=== PATIENT | female | born 1985 | race Caucasian/White ===

== ENCOUNTER → 2018-07-22 | Outpatient (CLI) | payer OTHER | LOC: LABWHC1 09:11 | PROVIDERS: ATTEND Obstetrics & Gynecology | DX: Z34.82 Encounter for supervision of other normal pregnancy, second trimester (principal); Z3A.00 Weeks of gestation of pregnancy not specified | CPT/HCPCS: 36415; 82950 ==

== ENCOUNTER 2018-10-19 17:54 | Inpatient (IN) | payer OTHER ==
[2018-10-19] MEDS ORDERED: LIDOCAINE 0.5% (PF) 5 MG/ML (50 ML SDV) SQ PRN (18:04)
[2018-10-19] MEDS ORDERED: METHYLERGONOVINE 0.2 MG/ML 1 ML AMP IM PRN (18:04)
[2018-10-19] MEDS ORDERED: OXYTOCIN 10 UNIT/ML 1 ML VIAL IM PRN (18:04)
[2018-10-19] MEDS ORDERED: TERBUTALINE 1 MG/ML VIAL SQ PRN (18:04)
[2018-10-19] MEDS ORDERED: CARBOPROST TROMETHAMINE 250 MCG/ML 1 ML AMP IM PRN (18:04)
[2018-10-19] MEDS ORDERED: LACTATED RINGERS 1,000 ML IV SCH (18:15)
[2018-10-19 18:27] LABS: Basophils # (A) 0.1 k/uL (0-0.2); Basophils % (A) 0 %; Eosinophils # (A) 0.3 k/uL (0-0.7); Eosinophils % (A) 2 %; HCT 37.8 % (34.0-46.0); HGB 12.3 gm/dL (11.4-16.0); Lymphocytes # (A) 1.9 k/uL (1.0-4.8); Lymphocytes % (A) 16 %; MCH 29.8 pg (25.0-35.0); MCHC 32.6 g/dL (31.0-37.0); MCV 91.4 fL (80.0-100.0); Mean Platelet Volume 8.8; Monocytes # (A) 0.4 k/uL (0-1.0); Monocytes % (A) 4 %; Neutrophils # (A) 8.8 k/uL (1.3-7.7); Neutrophils % (A) 76 %; Platelet Count 229 k/uL (150-450); RBC 4.14 m/uL (3.80-5.40); WBC 11.7 k/uL (3.8-10.6)
[2018-10-19] MEDS ORDERED: LANOLIN CREAM 5 GM TUBE TOPICAL PRN (18:32)
[2018-10-19] MEDS ORDERED: SIMETHICONE 80 MG CHEWABLE PO PRN (18:32)
[2018-10-19] MEDS ORDERED: BENZOCAINE/MENTHOL SPRAY 1 GM/SPRAY AEROSOL TOPICAL PRN (18:32)
[2018-10-19] MEDS ORDERED: WITCH HAZEL 1 EACH MED..PAD TOPICAL PRN (18:32)
[2018-10-19] MEDS ORDERED: diphenhydrAMINE 50 MG/ML 1 ML VIAL IVP PRN ×2 (18:32)
[2018-10-19] MEDS ORDERED: HYDROCORTISONE 2.5% RECTAL CREAM 30 GM TUBE RECTAL PRN (18:32)
[2018-10-19] MEDS ORDERED: diphenhydrAMINE 25 MG CAP PO PRN (18:32)
[2018-10-19] MEDS ORDERED: diphenhydrAMINE 50 MG CAP PO PRN (18:32)
[2018-10-19] MEDS ORDERED: ZOLPIDEM 5 MG TAB PO PRN (18:32)
--- NOTE | 2018-10-19 18:35 | P.HPOB ---
History of Present Illness H&P Date: 10/19/18 Chief Complaint: Intrauterine at 39 weeks 6 days gestation Care is a 33-year-old at 39 and 6 who arrives in active labor dilated to complete. Spontaneous rupture membranes occurred while in triage. Her Precis course she denies any significant competitions and was actually scheduled for induction in the morning. Pertinent labs include O+ blood type, Rh antibody was negative, rubella was immune, hepatitis B surface antigen/RPR/GBS were all negative. She does relate that she is aure relatively regularly since yesterday and delayed coming in until the pressure got too much. On physical exam vital signs are stable and afebrile. Heart was regular, lungs were clear, extremities were without pain. Abdomen soft gravid uterus was noted heart tones were category 1 tracing. Assessment intrauterine term. Plan expect spontaneous vaginal delivery. Past Medical History Past Medical History: Asthma History of Any Multi-Drug Resistant Organisms: None Reported Past Surgical History: No Surgical Hx Reported Past Anesthesia/Blood Transfusion Reactions: No Reported Reaction Past Psychological History: No Psychological Hx Reported Smoking Status: Former smoker Past Alcohol Use History: None Reported Past Drug Use History: None Reported - Past Family History Mother Family Medical History: No Reported History Medications and Allergies Home Medications Medication Instructions Recorded Confirmed Type Albuterol Inhaler [Ventolin Hfa 1 - 2 puff INHALATION Q6HR PRN 05/13/17 05/13/17 History Inhaler] Albuterol Nebulized [Ventolin 2.5 mg INHALATION Q4H 05/13/17 05/14/17 History Nebulized] Jeu-Gckx-Zjupo Acid 1 cap PO DAILY 05/13/17 05/14/17 History [-U Capsule (formulary)] Allergies Allergy/AdvReac Type Severity Reaction Status Date / Time No Known Allergies Allergy Verified 07/22/18 15:26 Exam Osteopathic Statement: *. No significant issues noted on an osteopathic structural exam other than those noted in the History and Physical/Consult. Intake and Output 10/19/18 10/19/18 10/19/18 06:59 14:59 22:59 Other: Weight 87.997 kg - OBG Physical Exam Breast: both: normal (no masses) Abdomen: bowel sounds normal, no diffuse tenderness, no bruit present, no guarding noted, no hepatomegaly, no splenomegaly, no mass Vulva: both: normal Vagina: normal moisture, no discharge Cervix: no lesion, no discharge Uterus: normal size, normal contour Adnexa: both: normal Anus/Rectum: normal perianal skin, no rectal mass, no hemorrhoids, heme negative Results Result Diagrams: 10/19/18 18:16 Abnormal Lab Results - Last 24 Hours (Table) 10/19/18 Range/Units 18:16 WBC 11.7 H (3.8-10.6) k/uL Neutrophils # 8.8 H (1.3-7.7) k/uL
--- NOTE | 2018-10-19 18:36 | P.PROBDLV ---
Vaginal Delivery Note - . Vaginal Delivery Note: Patient progressed complete and pushed with spontaneous vaginal delivery of a viable male over an intact perineum. Falling deliver the head, nuchal cord 1 was noted the baby was delivered through the nuchal cord with gentle downward and upward traction. Once baby was fully delivered mouth nares were bulb suctioned and baby was placed on mother's abdomen where the umbilical cord was clamped and cut in usual fashion. Placenta was then delivered intact and Pitocin was added to the IV. Blood was collected for O+ blood type. scores were 9 and 9 at one and 5 minutes respectively and the weight was 6 lbs. 11 oz. Both mother and baby are stable following delivery.
[2018-10-19] MEDS ORDERED: OXYTOCIN 20 UNITS/1000 ML NS 1,000 ML IV SCH (18:45)
[2018-10-19 18:51] VITALS: BMI 34.3
[2018-10-19] MEDS: IBUPROFEN 600 MG TAB PO PRN (19:15)
[2018-10-19] MEDS ORDERED: SENNOSIDES-DOCUSATE SODIUM 1 EACH TAB PO SCH (20:00)
[2018-10-19] MEDS: ACETAMINOPHEN TAB 325 MG TAB PO PRN (20:36)
[2018-10-19 23:46] VITALS: RESP 16
[2018-10-20] MEDS: ACETAMINOPHEN TAB 325 MG TAB PO PRN (00:27)
[2018-10-20] MEDS: IBUPROFEN 600 MG TAB PO PRN ×2 (08:03→15:47)
--- NOTE | 2018-10-20 08:24 | P.DS ---
Providers Date of admission: 10/19/18 18:05 Expected date of discharge: 10/20/18 Attending physician: Samira Berrios Primary care physician: Samira Berrios [place] [facility] Course: This is a 33-year-old female 5 para 3 at 39-6/7 weeks who presented in active labor and delivered vaginally a viable male infant on 10/19/2018 with scores of 9 at 1 minute and 9 at 5 minutes and infant weight of 6 pounds 11.9 ounces. Her course has been uncomplicated. She is breast- feeding. Lochia is decreasing. Pain is well-controlled with ibuprofen. Vital signs are stable. Abdomen is soft with fundus firm and nontender. Extremities show negative Homans. Impression is status post vaginal delivery day #1. Plan is to discharge home today. Routine instructions are given. She is advised follow-up in the office in 6 weeks for a check. She is advised to call the office if she has any further questions or concerns prior to her appointment time. She will be given a prescription for ibuprofen and a breast pump. Procedures: Spontaneous vaginal delivery of a viable male on 10/19/2018. Patient Condition at Discharge: Stable Plan - Discharge Summary New Discharge Prescriptions: New Ibuprofen [Motrin] 600 mg PO Q6HR PRN #60 tab PRN Reason: Mild Pain Or Fever >= 100.5 Continue Efj-Moll-Mkkkp Acid [-U Capsule (formulary)] 1 cap PO DAILY No Action Albuterol Nebulized [Ventolin Nebulized] 2.5 mg INHALATION Q4H Albuterol Inhaler [Ventolin Hfa Inhaler] 1 - 2 puff INHALATION Q6HR PRN PRN Reason: Wheezing Discharge Medication List Albuterol Inhaler [Ventolin Hfa Inhaler] 1 - 2 puff INHALATION Q6HR PRN 05/13/17 [History] Albuterol Nebulized [Ventolin Nebulized] 2.5 mg INHALATION Q4H 05/13/17 [History] Ekz-Ppdu-Yhzcb Acid [-U Capsule (formulary)] 1 cap PO DAILY 05/13/17 [History] Ibuprofen [Motrin] 600 mg PO Q6HR PRN #60 tab 10/20/18 [Rx] Follow up Appointment(s)/Referral(s): Berrios,Samira, DO [Primary Care Provider] - 6 Weeks Activity/Diet/Wound Care/Special Instructions: Instructions 1. Do not begin any exercise program for 3 weeks. 2. Do not resume sexual relations for 3 weeks or longer if uncomfortable. 3. You may take tub baths or showers at any time. 4. You may use tampons if desired after 3 weeks. 5. Keep the area of episiotomy (stitches) clean and dry. 6. If you are not nursing, wear a good fitting, supportive bra during the day and limit fluid intake for at least 1 week to prevent breast engorgement. 7. Call the office, [phone], within the next week to make appointment for your 6 week checkup if it has not already been made. 8. Report any of the following occurrences to the doctor promptly: a. Heavy, excessive bleeding b. Chills, fever c. Burning or frequency of urination d. Pain or redness and breasts if nursing e. Increasing pain or swelling in episiotomy (stitches). In addition to the above instructions, the following additional should be followed: 1. No heavy lifting or straining (exercising) until after 6 week checkup. 2. Keep abdominal incision clean and dry: You may wear a dressing if more comfortable. 3. Make office appointment for 10 days after going home or as instructed by her doctor. Discharge Disposition: HOME SELF-CARE
[2018-10-20 15:49] VITALS: BP 124/79; PULSE 77; TEMP 97.5
== END 2018-10-20 18:49 | disposition home or self-care (01) | DRG 807 ==
LOC: FBPOP 17:54 → 4FBP 18:05
PROVIDERS: ADMIT Obstetrics & Gynecology; ATTEND Obstetrics & Gynecology
PROC: 10E0XZZ Delivery of Products of Conception, External Approach (ICD-10-PCS; principal; 2018-10-19)
DX: O69.81X0 Labor and delivery complicated by cord around neck, without compression, not applicable or unspecified (principal); Z37.0 Single live birth; Z3A.39 39 weeks gestation of pregnancy; O99.52 Diseases of the respiratory system complicating childbirth; J45.909 Unspecified asthma, uncomplicated; Z87.891 Personal history of nicotine dependence; Z79.899 Other long term (current) drug therapy
CPT/HCPCS: 85025; 86850; 86900; 86901; 99213

== ENCOUNTER 2021-09-15 06:37 | Emergency (ER) | payer OTHER ==
[2021-09-15 06:47] VITALS: TEMP 98.3
[2021-09-15] MEDS ORDERED: MORPHINE SULFATE 4 MG/ML SYRINGE IVP STA ×3 (06:51→08:04)
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
[2021-09-15] MEDS ORDERED: HYDROcodone/APAP 5-325MG 1 EACH TAB PO STA (08:01)
[2021-09-15 08:45] VITALS: BP 118/60; PULSE 75; RESP 20
== END 2021-09-15 08:45 | disposition home or self-care (01) ==
LOC: EC 06:37
DX: S42.022A Displaced fracture of shaft of left clavicle, initial encounter for closed fracture (principal); J45.909 Unspecified asthma, uncomplicated; V43.52XA Car driver injured in collision with other type car in traffic accident, initial encounter; Y92.410 Unspecified street and highway as the place of occurrence of the external cause
CPT/HCPCS: 70450; 71045; 72125; 96374; 96376; 99284

== ENCOUNTER 2021-09-19 12:01 | Day surgery (SDC) | payer OTHER ==
[2021-09-18 08:52] VITALS: BMI 28.3
[~2021-09-19 12:01] MED LIST: DEXAMETHASONE SOD PHOSPHATE 4 MG/ML 1 ML VIAL IV ONE; LIDOCAINE 1% (10MG/ML) FOR IV START INTRADERMA PRN; ONDANSETRON 4 MG/2 ML VIAL IVP PRN
[2021-09-19] MEDS: LACTATED RINGERS 1,000 ML IV SCH ×2 (12:37→13:25)
[2021-09-19] MEDS ORDERED: SCOPOLAMINE 1.5MG/72HR PATCH TRANSDERM ONE (12:38)
[2021-09-19] MEDS ORDERED: MIDAZOLAM 2 MG/2 ML VIAL IVP ONE (12:56)
[2021-09-19] MEDS ORDERED: fentaNYL (PF) 50 MCG/ML 2 ML AMP IVP ONE (12:56)
[2021-09-19] MEDS ORDERED: ROPIVACAINE 5 MG/ML 30 ML VIAL ONE (13:26)
[2021-09-19] MEDS ORDERED: MIDAZOLAM 2 MG/2 ML VIAL ONE (13:26)
[2021-09-19] MEDS ORDERED: KETOROLAC 15 MG/ML 1 ML VIAL ONE (13:26)
[2021-09-19] MEDS ORDERED: PROPOFOL 10 MG/ML 20 ML VIAL IV ONE (13:26)
[2021-09-19] MEDS ORDERED: fentaNYL (PF) 50 MCG/ML 2 ML AMP ONE (13:26)
[2021-09-19] MEDS ORDERED: ceFAZolin 1,000 MG in SODIUM CHLORIDE 0.9% 1,000 ML IRRIGATION ONE (13:26)
[2021-09-19] MEDS ORDERED: SUCCINYLCHOLINE CHLORIDE 100 MG/5 ML SYR IV ONE (13:26)
[2021-09-19] MEDS ORDERED: PHENYLEPHRINE-0.9% NACL SYG 1,000 MCG/10 ML SYRINGE ONE (13:26)
--- NOTE | 2021-09-19 13:55 | P.ANPRN ---
Procedure Note - Anesthesia - Nerve Block Performed Left Interscalene Single Time Out Performed: Yes ([id number]) Date of Procedure: 09/19/21 Procedure Start Time: 12:56 Procedure Stop Time: 13:01 Location of Patient: PreOp Indication: Acute Post-Operative Pain, Requested by Surgeon Specifically requested for management of pain by DrAnnika: Agustin Davis Sedation Type: Sedate with meaningful contact maintained Preparation: Sterile Prep Position: Supine Catheter: None Needle Types: Pajunk Needle Gauge: 21 Ultrasound used to visualize needle placement: Yes Ultrasound used to observe medication spread: Yes Injectate: 0.5% Ropivacaine (see comment for volume) (30cc) Blood Aspirated: No Pain Paresthesia on Injection Noted: No Resistance on Injection: Normal Image Stored and Saved: Yes Events: Uneventful and Well Tolerated
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
[2021-09-19 14:45] VITALS: TEMP 97.2
[2021-09-19] MEDS: HYDROmorphone 0.5 MG/0.5 ML SYRINGE IVP PRN ×2 (14:53→15:04)
[2021-09-19 15:00] VITALS: RESP 16
[2021-09-19] MEDS ORDERED: LACTATED RINGERS 1,000 ML IV ONE (15:05)
[2021-09-19 16:25] VITALS: BP 133/88; PULSE 86
== END 2021-09-19 16:36 | disposition home or self-care (01) ==
LOC: OR 12:01
PROVIDERS: ATTEND Orthopaedic Surgery
DX: S42.022A Displaced fracture of shaft of left clavicle, initial encounter for closed fracture (principal)
CPT/HCPCS: 23515; 64415; 81025; 76942; C1713; J2250; J1100; J0690 ×2; J2405; J3010; J2795; J1885; J2370; J0330; J2704; J1170